=== PATIENT | female | born 1940 | race Caucasian/White ===

== ENCOUNTER 2018-01-18 07:25 | Day surgery (SDC) | payer MEDICARE ==
[~2018-01-18 07:25] MED LIST: LIDOCAINE 2% INJ 100 MG/5 ML SDV (FOR ANES.) As Ordered; MIDAZOLAM INJ 2 MG/2 ML VIAL (J2250) As Ordered; PROPOFOL 200 MG/20 ML VIAL As Ordered; ROCURONIUM BROMIDE 50 MG/5 ML VIAL As Ordered; dexameTHASONE 4 MG/ML 1ML VIAL (J1100) As Ordered; fentaNYL 100 MCG/2 ML INJECTION (J3010) As Ordered
[2018-01-18] MEDS: LR 1,000 ML IV ×2 (07:59)
[2018-01-18 08:11] LABS: HEMATOCRIT 38.2 % (36.0-47.0); HEMOGLOBIN 13.5 g/dl (12.0-15.5); MEAN CORPUSCULAR HEMOGLOBIN 35.3 pg (27.0-33.0); MEAN CORPUSCULAR HGB CONC 35.3 g/dl (32.0-36.5); PLATELET COUNT, AUTOMATED 148 10^3/uL (150-450); RED BLOOD COUNT 3.82 10^6/uL (4.00-5.40); RED CELL DISTRIBUTION WIDTH 15.1 % (11.5-14.5)
[2018-01-18] MEDS ORDERED: SCOPOLAMINE 1MG TRANSDERMAL PATCH As Ordered ×2 (08:17)
[2018-01-18] MEDS: SCOPOLAMINE 1MG TRANSDERMAL PATCH TOP ×2 (08:27)
[2018-01-18 08:33] LABS: ALBUMIN 3.7 GM/DL (3.2-5.2); ALBUMIN/GLOBULIN RATIO 1.19 (1.00-1.93); ALKALINE PHOSPHATASE 95 U/L (45-117); ALT/SGPT 32 U/L (12-78); ANION GAP 8 MEQ/L (8-16); AST/SGOT 19 U/L (7-37); BILIRUBIN,TOTAL 0.8 MG/DL (0.2-1.0); BLOOD UREA NITROGEN 15 MG/DL (7-18); CALCIUM LEVEL 9.2 MG/DL (8.8-10.2); CARBON DIOXIDE LEVEL 26 MEQ/L (21-32); CHLORIDE LEVEL 107 MEQ/L (98-107); CREATININE FOR GFR 1.21 MG/DL (0.55-1.30); GLOMERULAR FILTRATION RATE 45.9 (>39); GLUCOSE, FASTING 191 MG/DL (70-100); POTASSIUM SERUM 4.4 MEQ/L (3.5-5.1); SODIUM LEVEL 141 MEQ/L (136-145); TOTAL PROTEIN 6.8 GM/DL (6.4-8.2)
[2018-01-18] MEDS: EPINEPHrine 1MG/10ML SYRINGE 1.5IN As Ordered ×2 (10:16)
[2018-01-18] MEDS: LIDOCAINE 1% MDV 20ML VIAL As Ordered ×2 (10:16)
[2018-01-18] MEDS: CETACAINE SPRAY 5GM As Ordered ×2 (10:41)
[2018-01-18] MEDS ORDERED: ePHEDrine SULFATE 25 MG/5 ML(5MG/ML) SYRINGE As Ordered ×2 (11:49)
[2018-01-18] MEDS ORDERED: GLYCOPYRROLATE INJ 0.2 MG/ML 2 ML VIAL As Ordered ×2 (11:49)
[2018-01-18] MEDS ORDERED: NEOSTIGMINE 10 MG/10 ML VIAL (J2710) As Ordered ×2 (11:49)
[2018-01-18] MEDS ORDERED: ONDANSETRON 4MG/2ML VIAL (J2405) As Ordered ×2 (11:50)
[2018-01-18] MEDS ORDERED: LR 1,000 ML IV ×2 (12:00)
[2018-01-18] MEDS ORDERED: ONDANSETRON 4MG/2ML VIAL (J2405) IV ×2 (12:00)
[2018-01-18] MEDS ORDERED: PERCOCET 5MG/325MG TAB PO ×2 (12:00)
[2018-01-18] MEDS ORDERED: fentaNYL 100 MCG/2 ML INJECTION (J3010) IV ×2 (12:00)
[2018-01-18] MEDS ORDERED: ALBUTEROL SULFATE 2.5 MG/0.5 ML INH NEB SOLN As Ordered ×2 (12:48)
[2018-01-18] MEDS ORDERED: ALBUTEROL SULFATE 2.5 MG/0.5 ML INH NEB SOLN INH ×2 (13:15)
== END 2018-01-18 14:55 | disposition home or self-care (01) ==
LOC: M SDC 07:25
DX: C77.1 Secondary and unspecified malignant neoplasm of intrathoracic lymph nodes (principal); C34.32 Malignant neoplasm of lower lobe, left bronchus or lung (principal); F17.210 Nicotine dependence, cigarettes, uncomplicated; I48.91 Unspecified atrial fibrillation; J44.9 Chronic obstructive pulmonary disease, unspecified; R06.02 Shortness of breath; E11.9 Type 2 diabetes mellitus without complications; K21.9 Gastro-esophageal reflux disease without esophagitis; Z79.899 Other long term (current) drug therapy
CPT/HCPCS: 31623